=== PATIENT | female | born 1965 | race Caucasian/White ===

== ENCOUNTER 2016-12-10 11:53 | Emergency (ER) | payer OTHER ==
[2016-12-10 12:52] VITALS: TEMP 98.6; BMI 26.4
--- NOTE | 2016-12-10 13:45 | DIRPT ---
CLINICAL DATA: Recent fall on ice with wrist pain, initial encounter EXAM: LEFT FOREARM - 2 VIEW COMPARISON: None. FINDINGS: Postsurgical changes are noted in the midshaft of the radius and ulna. There is evidence of a comminuted distal radial fracture with impaction and posterior angulation at the fracture site. An undisplaced ulnar styloid fracture is noted as well. IMPRESSION: Distal radial and ulnar fractures. Electronically Signed By: Edi Peters M.D. On: 12/10/2016 13:42
--- NOTE | 2016-12-10 13:46 | DIRPT ---
CLINICAL DATA: Recent slip and fall on ice with wrist pain, initial encounter EXAM: LEFT WRIST - COMPLETE 3+ VIEW COMPARISON: None. FINDINGS: Postsurgical changes are again noted in the midshaft of the radius and ulna. A comminuted fracture of the distal radius with impaction and posterior angulation at the fracture site is noted. An undisplaced ulnar styloid fracture is noted as well. Degenerative changes at the first CMC joint are seen. Generalized soft tissue swelling is noted. IMPRESSION: Distal left radial and ulnar fractures. Electronically Signed By: Edi Peters M.D. On: 12/10/2016 13:43
[2016-12-10] MEDS ORDERED: HYDROmorphone 1 MG INJECTION IM ONE (14:14)
[2016-12-10] MEDS ORDERED: KETAMINE 50 MG/ML SYRINGE IV ONE (14:47)
--- NOTE | 2016-12-10 14:55 | EDPRACDOC ---
- General Information Chief Complaint: Upper Extremity Injury Stated Complaint: SLIPPED & FELL INJURED LT FA HX OF HARDWARE Time Seen by Provider: 12/10/16 14:09 Information Source: Patient Home Medications: Home Medications Ibuprofen 600 mg PO TID #20 tablet 12/10/16 Oxycodone Immediate Release [Oxycodone Immediate Release (OxyIR)] 5 mg PO Q6H PRN #30 tab 12/10/16 Allergies/Adverse Reactions: Allergies Allergy/AdvReac Type Severity Reaction Status Date / Time No Known Allergies Allergy Verified 12/10/16 12:50 - History of Present Illness Onset: last night HPI: PT PRESENTS TODAY WITH LEFT WRIST PAIN AFTER FOOSH LAST NIGHT. NO OTHER INJURY. APPARENT DEFORMITY. PT STATES SHE HAD PREVIOUS ORIF ON LEFT FOREARM AND IS ALSO CONCERNED ABOUT THIS. NO APPARENT DISTRESS. Location: Reports: Radial Mechanism: Reports: FOOSH Circumstances: Reports: Fall Pain Severity: Reports: Moderate Associated Signs and Symptoms: Reports: Forearm Pain ED Past Medical History - History Reviewed Yes Nurses notes reviewed and agree except as marked - Patient Medical History Systemic History: Denies: Cancer Surgical History: Reports: Hysterectomy - Social Medical History Smoking Status: Heavy tobacco smoker (5 or more cigarettes/day or daily pipe/ cigar) EDM Review of Systems - Review of Systems ROS Negative Except as Marked: Yes All systems reviewed and were negative except as marked Constitutional: No Symptoms Reported Respiratory: No Symptoms Reported Cardiovascular: No Symptoms Reported Gastrointestinal: No Symptoms Reported Neurological: No Symptoms Reported Musculoskeletal: Forearm, Wrist Integumentary: Bruising - Physical Exam Constitutional: Alert (Awake), No apparent distress Oriented to: Time, Person, Place Last recorded Vital Signs: Last Vital Signs Temp 98.6 F 12/10/16 12:50 Pulse 80 12/10/16 14:02 Resp 18 12/10/16 14:02 BP 140/74 12/10/16 14:02 Pulse Ox 95 12/10/16 14:02 Oxygen Pulse Oxygen Saturation 95 O2 Device Room Air Oxygen Flow Rate Fraction of Inspired Oxygen ( FIO2) - HEENT Head: Normal Eye Exam: Normal Neck: Normal, Denies Pain, Midline - Respiratory/Cardiovascular Respiratory: Normal - CTA Cardiovascular: Normal - GI Palpation: Normal Tenderness: Non tender - Musculoskeletal Back: Normal Extremities: Other (APPARENT DEFORMITY TO LEFT WRIST; RADIAL PULSES INTACT; CAP REFILL < 1;) - Integumentary Lymphatics: Normal - Neurologic Cerebellar: Normal Mood Description: Normal Thought: Coherent Perception: Normal ED Wrist Problem Exam Wrist Symptoms: Swelling, Deformity, Limited ROM, Moderate Tenderness Hand Symptoms: Normal Forearm Symptoms: Mild Tenderness Distal Function/Circulation: Normal - Integumentary Skin: Ecchymosis Lymphatics: Normal ED Wrist Problem MDM - Additional Information Additional Information: DR. WHITE CONSULTED AND REQUESTED REDUCTION. WRIST EXAMINED BY DR. LÓPEZ WHO STATES THAT D/T SWELLING THE REDUCTION WILL BE OF LIMITED USE. Decision Time to Discharge: 15:27 - Departure Disposition: Home Condition: Stable Final Diagnosis: Wrist fracture Instructions: Wrist Fracture in Adults (ED) Education/Counseling Given To: Patient Education/Counseling Given Regarding: Diagnosis, Treatment, Follow Up Referrals: Lalo Silvestre MD [Staff Physician] - One Week Prescriptions: Ibuprofen 600 mg PO TID #20 tablet Oxycodone Immediate Release [Oxycodone Immediate Release (OxyIR)] 5 mg PO Q6H PRN #30 tab PRN Reason: Pain Additional Instructions: PLEASE FOLLOW UP WITH ORTHO. - Physician Consulted Orthopedics Time Called: 14:55 Provider Called: Mauricio White Time Spool Salvager Returned Call: 14:55
[2016-12-10] MEDS ORDERED: PROPOFOL 200 MG/20 ML VIAL IV ONE (15:02)
[2016-12-10] MEDS ORDERED: HYDROmorphone 1 MG INJECTION IV ONE (15:28)
[2016-12-10 15:35] VITALS: BP 160/76; PULSE 72
== END 2016-12-10 15:55 | disposition home or self-care (01) ==
LOC: ED 11:53 → EDMC 15:55
DX: S62.109A Fracture of unspecified carpal bone, unspecified wrist, initial encounter for closed fracture (principal); W19.XXXA Unspecified fall, initial encounter; Y93.9 Activity, unspecified
CPT/HCPCS: 73090; 73110; 96372; 96374; 99283; J1170; J3490